=== PATIENT | female | born 1970 | race Caucasian/White ===

== ENCOUNTER 2020-01-07 17:14 | Emergency (ER) | payer BC ==
[~2020-01-07] VITALS: Ht 154.9 cm; Wt 77.1 kg
[2020-01-07] MEDS ORDERED: TAMIFLU 75MG CA75 MG PO (20:10)
== END 2020-01-07 20:08 | disposition home or self-care (01) ==
LOC: ED 17:14
DX: J10.1 Influenza due to other identified influenza virus with other respiratory manifestations (principal)

== ENCOUNTER → 2020-01-25 | Outpatient (CLI) | payer BC ==
[~2020-01-25] MED LIST: TAMIFLU 75MG CA75 MG PO
== END | disposition home or self-care (01) ==
LOC: RESCLI 01:49
DX: M54.41 Lumbago with sciatica, right side (principal); G89.29 Other chronic pain; M79.671 Pain in right foot; G43.109 Migraine with aura, not intractable, without status migrainosus

== ENCOUNTER 2022-06-03 16:26 | Inpatient (IN) | payer BC ==
[~2022-06-03] VITALS: Ht 154.9 cm; Wt 79.9 kg
[2022-06-03 17:00] VITALS: BP 140/99
[2022-06-03 17:49] LABS: BASO # 0.1 10*3/uL (0.0-0.1); BASO % 0.7 % (0.0-1.0); EOS # 0.2 10*3/uL (0.0-0.4); EOS % 1.7 % (1.0-4.0); LYMPH # 1.9 10*3/uL (1.3-4.4); MEAN CELL VOLUME 84.1 fl (81.0-99.0); MEAN CORPUSCULAR HGB 27.9 pg (27.0-31.0); MEAN CORPUSCULAR HGB CONC 33.2 g/dl (33.0-37.0); MEAN PLATELET VOLUME 9.3 fl (9.6-12.3); MONO # 0.7 10*3/uL (0.1-1.0); MONO % 6.8 % (3.0-9.0); NEUT % 71.5 % (47.0-73.0); PLATELET COUNT AUTOMATED 278 10*3/uL (130-400); RED BLOOD COUNT 5.23 10*6/uL (4.10-5.10); RED CELL DISTRI WIDTH 12.8 % (0-14.5); WHITE BLOOD COUNT 9.8 10*3/uL (4.8-10.8)
[2022-06-03 18:31] LABS: ALKALINE PHOSPHATASE 114 U/L (45-117); BUN 9 mg/dl (7-24); CHLORIDE 107 mmol/L (98-107); CREATININE 0.88 mg/dL (0.55-1.02); POTASSIUM 4.1 mmol/L (3.5-5.1); SGOT/AST 24 IU/L (3-35); SGPT/ALT 29 U/L (12-78); SODIUM 140 mmol/L (136-145); TOTAL PROTEIN 7.4 gm/dL (6.4-8.2)
[2022-06-03 22:54] VITALS: BP 127/77
[2022-06-04 06:13] LABS: BUN 12 mg/dl (7-24); CHLORIDE 107 mmol/L (98-107); CHOLESTEROL 195 mg/dL (<200); CREATININE 1.04 mg/dL (0.55-1.02); POTASSIUM 3.3 mmol/L (3.5-5.1); SGOT/AST 15 IU/L (3-35); SGPT/ALT 27 U/L (12-78); SODIUM 141 mmol/L (136-145); TRIGLYCERIDES 152 mg/dl (<150)
[2022-06-04 06:20] LABS: ALKALINE PHOSPHATASE 105 U/L (45-117); LDL CHOLESTEROL 128 mg/dL (9-159); TOTAL PROTEIN 6.5 gm/dL (6.4-8.2)
[2022-06-04 06:24] LABS: BASO # 0.1 10*3/uL (0.0-0.1); EOS # 0.2 10*3/uL (0.0-0.4); EOS % 2.9 % (1.0-4.0); HEMATOCRIT 40.5 % (37.0-47.0); LYMPH # 2.1 10*3/uL (1.3-4.4); LYMPH % 25.7 % (27.0-41.0); MEAN CELL VOLUME 86.2 fl (81.0-99.0); MEAN CORPUSCULAR HGB 27.9 pg (27.0-31.0); MEAN CORPUSCULAR HGB CONC 32.3 g/dl (33.0-37.0); MEAN PLATELET VOLUME 9.9 fl (9.6-12.3); MONO # 0.7 10*3/uL (0.1-1.0); MONO % 8.1 % (3.0-9.0); NEUT # 5.1 10*3/uL (2.3-7.9); NEUT % 62.1 % (47.0-73.0); PLATELET COUNT AUTOMATED 273 10*3/uL (130-400); WHITE BLOOD COUNT 8.3 10*3/uL (4.8-10.8)
[2022-06-04 08:10] VITALS: BP 117/74
[2022-06-04] MEDS ORDERED: AMITRIPTYLINE25 MG PO (10:54)
[2022-06-04] MEDS ORDERED: IMITREX50 MG PO (10:54)
[2022-06-04 12:00] VITALS: BP 123/66
[2022-06-04 16:00] VITALS: BP 118/57
[2022-06-05] VITALS: BP 120/60
[2022-06-05 08:00] VITALS: BP 123/63
[2022-06-05 08:39] LABS: BASO # 0.1 10*3/uL (0.0-0.1); BASO % 0.8 % (0.0-1.0); EOS # 0.2 10*3/uL (0.0-0.4); EOS % 3.2 % (1.0-4.0); HEMATOCRIT 41.2 % (37.0-47.0); LYMPH # 1.1 10*3/uL (1.3-4.4); MEAN CELL VOLUME 86.4 fl (81.0-99.0); MEAN CORPUSCULAR HGB 28.3 pg (27.0-31.0); MEAN CORPUSCULAR HGB CONC 32.8 g/dl (33.0-37.0); MEAN PLATELET VOLUME 9.4 fl (9.6-12.3); MONO # 0.4 10*3/uL (0.1-1.0); MONO % 5.8 % (3.0-9.0); NEUT # 4.5 10*3/uL (2.3-7.9); NEUT % 72.9 % (47.0-73.0); PLATELET COUNT AUTOMATED 238 10*3/uL (130-400); RED BLOOD COUNT 4.77 10*6/uL (4.10-5.10); RED CELL DISTRI WIDTH 12.9 % (0-14.5); WHITE BLOOD COUNT 6.2 10*3/uL (4.8-10.8)
[2022-06-05 09:00] LABS: BUN 11 mg/dl (7-24); CHLORIDE 110 mmol/L (98-107); CREATININE 0.93 mg/dL (0.55-1.02); SODIUM 141 mmol/L (136-145)
[2022-06-05] MEDS ORDERED: AMOX-CLAV 875-1 EACH PO (11:04)
== END 2022-06-05 14:15 | disposition home or self-care (01) | DRG 603 ==
LOC: ED 16:26 → EDHOLD 06-04 00:17 → 5E 06-04 00:17
PROVIDERS: Emergency Medicine; Family Medicine; Internal Medicine; ADMIT Internal Medicine; ATTEND Internal Medicine
DX: L03.211 Cellulitis of face (principal); E44.0 Moderate protein-calorie malnutrition; H66.92 Otitis media, unspecified, left ear; H60.502 Unspecified acute noninfective otitis externa, left ear; G43.909 Migraine, unspecified, not intractable, without status migrainosus; E66.9 Obesity, unspecified; Z68.33 Body mass index [BMI] 33.0-33.9, adult; Z83.3 Family history of diabetes mellitus; Z83.6 Family history of other diseases of the respiratory system

== ENCOUNTER 2024-04-04 12:31 | Emergency (ER) | payer BC ==
[~2024-04-04 12:31] MED LIST changes: +AMITRIPTYLINE25 MG PO; +AMOX-CLAV 875-1 EACH PO; +IMITREX50 MG PO
[2024-04-04] MEDS ORDERED: SODIUM CHLORIDE 0.9% 1,000 ML IV SCH (13:35)
[2024-04-04 13:58] LABS: BASO % 0.4 % (0.0-1.0); EOS % 0.4 % (1.0-4.0); HEMATOCRIT 43.1 % (37.0-47.0); LYMPH # 0.8 10*3/uL (1.3-4.4); LYMPH % 8.5 % (27.0-41.0); MEAN CELL VOLUME 86.4 fl (81.0-99.0); MEAN CORPUSCULAR HGB 29.1 pg (27.0-31.0); MEAN CORPUSCULAR HGB CONC 33.6 g/dl (33.0-37.0); MEAN PLATELET VOLUME 9.4 fl (9.6-12.3); MONO # 0.6 10*3/uL (0.1-1.0); MONO % 6.3 % (3.0-9.0); NEUT # 7.9 10*3/uL (2.3-7.9); NEUT % 84.1 % (47.0-73.0); PLATELET COUNT AUTOMATED 227 10*3/uL (130-400); RED BLOOD COUNT 4.99 10*6/uL (4.10-5.10); WHITE BLOOD COUNT 9.4 10*3/uL (4.8-10.8)
[2024-04-04 14:14] LABS: ALKALINE PHOSPHATASE 91 U/L (46-116); BUN 11 mg/dl (9-23); CHLORIDE 105 mmol/L (98-107); SGPT/ALT 24 U/L (5-49)
[2024-04-04] MEDS ORDERED: CETRAXAL1 EACH OT (14:50)
[2024-04-04] MEDS ORDERED: PREDNISONE50 MG PO (14:50)
[2024-04-04] MEDS ORDERED: AMOX-CLAV 875-1 EACH PO (14:50)
== END 2024-04-04 15:12 | disposition home or self-care (01) ==
LOC: ED 12:31
PROVIDERS: Internal Medicine
DX: H60.92 Unspecified otitis externa, left ear (principal); Z79.2 Long term (current) use of antibiotics; Z79.899 Other long term (current) drug therapy; Z98.890 Other specified postprocedural states

== ENCOUNTER 2024-12-06 10:02 | Emergency (ER) | payer OTHER, BC ==
[~2024-12-06] VITALS: Wt 74.8 kg
[~2024-12-06 10:02] MED LIST changes: +CETRAXAL1 EACH OT; +PREDNISONE50 MG PO
[2024-12-06] MEDS ORDERED: Bacitracin Zinc 14 GM TUBE T ONE (10:55)
[2024-12-06] MEDS ORDERED: Acetaminophen/Oxycodone 5 MG/325 MG TABLET PO ONE (11:00)
[2024-12-06] MEDS ORDERED: PERCOCET 5-3251 EACH PO (12:30)
== END 2024-12-06 11:49 | disposition home or self-care (01) ==
LOC: ED 10:02
DX: S00.83XA Contusion of other part of head, initial encounter (principal); S80.02XA Contusion of left knee, initial encounter; S80.01XA Contusion of right knee, initial encounter; M54.2 Cervicalgia; M54.6 Pain in thoracic spine; R07.81 Pleurodynia; Z79.899 Other long term (current) drug therapy; Z98.890 Other specified postprocedural states; V49.88XA Car occupant (driver) (passenger) injured in other specified transport accidents, initial encounter; Y93.I9 Activity, other involving external motion; Y92.488 Other paved roadways as the place of occurrence of the external cause; Y99.8 Other external cause status